=== PATIENT | male | born 1975 | race American Indian/Alaskan Native ===

== ENCOUNTER 2018-10-02 15:54 | Emergency (ER) | payer BC ==
[2018-10-02] MEDS ORDERED: IBUPROFEN PO ONE ×2 (16:12→16:13)
--- NOTE | 2018-10-02 16:14 | Emergency Department Report ---
Blank Doc - Documentation Documentation: 43 y/o male comes in for facial swelling and pain. Patient was seen by dentist and placed on Abx.
[2018-10-02] MEDS ORDERED: DILAUDID IV ONE (16:24)
[2018-10-02] MEDS ORDERED: NACL 0.9% 1000 ML IV ONE (16:25)
--- NOTE | 2018-10-02 16:28 | Emergency Department Report ---
<NATANAELRANJIT FLANAGAN Brennan - Last Filed: 10/02/18 19:09> ED General Adult HPI - General Chief complaint: Dental/Oral Stated complaint: ABSCESS ON LEFT SIDE OF FACE Source: patient Mode of arrival: Ambulatory Limitations: No Limitations - History of Present Illness Initial comments: Patient is a 43-year-old male who comes to the ER today complaining of left- sided facial pain. Patient saw a dentist about a week ago and the dentist has him on clindamycin and now persistent and he is scheduled for a obstruction in the morning. However the swelling on the side of his face is gotten worse he states that the swelling in his neck is gotten better. He has a low-grade fever 100.7 oral. He is controlling secretions with mild trismus. He does have left cervical lymphadenopathy but again the patient states that that has improved greatly. Patient is not hypotensive on admission but he does have a heart rate of 94. In the context of his clinical picture including fever, borderline tachycardia and no new infection on clindamycin now for almost a week the patient was called a code sepsis and the sepsis workup initiated. PLAN 1. NS 2. LABS WITH LACTIC ACID AND CULTURES 3. IV CLINDA 4 IV SOLUMEDROL 5. PAIN CONTROL 6. TREAT FEVER AND MONITOR VS 7 CT TO RO ABSCESS -: Gradual, days(s) Location: face Associated Symptoms: fever/chills - Related Data Previous Rx's Medication Instructions Recorded Last Taken Type Acetaminophen/Codeine [Tylenol 1 tab PO Q6H PRN #12 tab 10/02/18 Unknown Rx /Codeine # 3 tab] Allergies Allergy/AdvReac Type Severity Reaction Status Date / Time No Known Allergies Allergy Verified 10/02/18 16:18 ED Review of Systems Comment: All other systems reviewed and negative Constitutional: see HPI, fever ENT: as per HPI, dental pain. denies: ear pain, throat pain, hearing loss, epistaxis Cardiovascular: denies: as per HPI Endocrine: no symptoms reported ED Past Medical Hx - Past Medical History Previous Medical History?: No - Surgical History Past Surgical History?: No - Family History Family history: no significant - Social History Smoking Status: Current Every Day Smoker Substance Use Type: None - Medications Home Medications: Home Medications Medication Instructions Recorded Confirmed Last Taken Type Acetaminophen/Codeine [Tylenol 1 tab PO Q6H PRN #12 tab 10/02/18 Unknown Rx /Codeine # 3 tab] ED Physical Exam - General Limitations: No Limitations General appearance: alert - Eye Eye exam: Present: PERRL - ENT ENT exam: Present: mucous membranes moist - Expanded ENT Exam Expanded Mouth exam: Present: trismus. Absent: drooling, muffled voice, tongue normal Teeth exam: Present: dental caries Throat exam: Negative: tonsillar erythema - Neck Neck exam: Present: lymphadenopathy - Respiratory Respiratory exam: Present: normal lung sounds bilaterally - Cardiovascular Cardiovascular Exam: Present: regular rate - GI/Abdominal GI/Abdominal exam: Present: soft, normal bowel sounds - Extremities Exam Extremities exam: Present: normal inspection - Back Exam Back exam: Present: normal inspection - Neurological Exam Neurological exam: Present: alert, oriented X3, CN II-XII intact - Psychiatric Psychiatric exam: Present: normal affect, normal mood - Skin Skin exam: Present: warm, dry, intact ED Course - Reevaluation(s) Reevaluation #1: 10/02/18 19:09 REPORT TO RICO Munroe NP ED Medical Decision Making - Lab Data Result diagrams: 10/02/18 16:40 10/02/18 16:40 - Radiology Data Radiology results: report reviewed, image reviewed - Medical Decision Making Labs 10/02/18 10/02/18 10/02/18 16:40 16:40 16:40 WBC 15.5 H RBC 4.95 Hgb 14.9 Hct 43.8 MCV 88 MCH 30 MCHC 34 RDW 13.1 L Plt Count 218 Lymph % (Auto) 10.8 L [place] % (Auto) 7.5 H Eos % (Auto) 0.7 Baso % (Auto) 1.3 Lymph # 1.7 [place] # 1.2 H Eos # 0.1 Baso # 0.2 H Seg Neutrophils % 79.7 H Seg Neutrophils # 12.3 H Sodium 141 Potassium 3.3 L Chloride 97.9 L Carbon Dioxide 28 Anion Gap 18 BUN 12 Creatinine 0.9 Estimated GFR > 60 BUN/Creatinine Ratio 13 Glucose 121 H Lactic Acid 2.20 H* Calcium 9.1 Total Bilirubin 0.40 AST 15 ALT 13 Alkaline Phosphatase 70 Total Protein 8.0 Albumin 4.5 Albumin/Globulin Ratio 1.3 Urine Color Urine Turbidity Urine pH Ur Specific [place] Urine Protein Urine Glucose (UA) Urine Ketones Urine Blood Urine Nitrite Urine Bilirubin Urine Urobilinogen Ur Leukocyte Esterase Urine WBC (Auto) Urine RBC (Auto) Urine Mucus 10/02/18 18:09 WBC RBC Hgb Hct MCV MCH MCHC RDW Plt Count Lymph % (Auto) [place] % (Auto) Eos % (Auto) Baso % (Auto) Lymph # [place] # Eos # Baso # Seg Neutrophils % Seg Neutrophils # Sodium Potassium Chloride Carbon Dioxide Anion Gap BUN Creatinine Estimated GFR BUN/Creatinine Ratio Glucose Lactic Acid Calcium Total Bilirubin AST ALT Alkaline Phosphatase Total Protein Albumin Albumin/Globulin Ratio Urine Color Yellow Urine Turbidity Clear Urine pH 6.0 Ur Specific [place] 1.017 Urine Protein <15 mg/dl Urine Glucose (UA) Neg Urine Ketones Tr Urine Blood Sm Urine Nitrite Neg Urine Bilirubin Neg Urine Urobilinogen < 2.0 Ur Leukocyte Esterase Neg Urine WBC (Auto) < 1.0 Urine RBC (Auto) 16.0 Urine Mucus Few Vital Signs 10/02/18 16:09 Temperature 100.7 F H Pulse Rate 94 H Respiratory 18 Rate Blood Pressure 155/89 O2 Sat by Pulse 99 Oximetry 1900 LABS NOTED PT MEDICATED PER ORDERS CT IS PENDING REPORT TO RICO LOWRY FOR CT EVAL/DISPO - Differential Diagnosis RO ABSCESS V DENTAL CARIES ED Disposition Clinical Impression: Abscess, Encounter for incision and drainage procedure Disposition: - TO HOME OR SELFCARE Is pt being admited?: No Does the pt Need Aspirin: No Condition: Stable Instructions: Acetaminophen/Codeine (By mouth), Abscess Incision and Drainage (ED), Abscess (ED) Additional Instructions: Follow-up with a primary care doctor in 3-5 days or if symptoms worsen and continue return to emergency room as soon as possible. Return in 2 days for packing removal. Do not operate any machinery while taking Tylenol with codeine as this may cause drowsiness. Continue taking clindamycin as prescribed to you by the dentist. Prescriptions: Acetaminophen/Codeine [Tylenol /Codeine # 3 tab] 1 tab PO Q6H PRN #12 tab PRN Reason: Pain , Severe (7-10) Referrals: JONATAN BERNSTEIN MD [Primary Care Provider] - 3-5 Days PRIMARY CAREMD [Referring] - 3-5 Days JOSH GALLARDO MD [Staff Physician] - 3-[address] [facility] [Outside] - 3-5 Days Forms: Work/School Release Form(ED) <RICO LIMA - Last Filed: 10/02/18 21:56> ED Review of Systems ROS: Stated complaint: ABSCESS ON LEFT SIDE OF FACE Other details as noted in HPI ED Physical Exam - Expanded Head Exam Expanded 1 - Positive induration and fluctuance. Tender to touch. ED Course Vital Signs 10/02/18 10/02/18 10/02/18 16:09 19:56 21:41 Temperature 100.7 F H 99.1 F Pulse Rate 94 H 78 75 Respiratory 18 16 15 Rate Blood Pressure 155/89 Blood Pressure 168/97 [Right] O2 Sat by Pulse 99 98 100 Oximetry - I & D Left Face Type of Procedure: Complex Site: left facial area Blade Size: 11 I & D Procedure: betadine prep, sterile drapes applied, sterile dressing applied, gauze wick placed Progress: Under sterile field, I used Betadine to cleanse the area. I then used 2% lidocaine plain with 25-gauge 5/8 needle to inject area for anesthetic purposes. Total volume injected 3 mL. I then used an 11 blade to make a 1 cm incision. About 4 mL's of purulent drainage has been noted. I then used a hemostat to break the abscess formation. I then used sterile 0.9% normal saline flush to flush the wound with total volume of 40 mL used. I then put a 1/4 iodoform packing to the incision. A sterile 4 x 4 with tape has been applied as dressing. Bleeding is under control. Patient tolerated the procedure well with no signs of distress noted. ED Medical Decision Making - Lab Data Result diagrams: 10/02/18 16:40 10/02/18 16:40 - Medical Decision Making Patient was originally seen by Rosa ALMANZA. CT scan results show that patient has left anterior facial subcutaneous abscess. Patient was consulted with Lance See by patient history, physical exam, labs and CT results and agrees for incision and drainage with follow-up instructions. No dental abscesses noted. There was induration or fluctuance upon exam. Sepsis workup has been initiated. Patient did receive fluids and antibiotics. Repeat lactic acid has significantly decreased prior to discharge. Vital signs are stable prior to discharge. Prior to incision and drainage patient gave a verbal consent understanding and agreement. Patient was educated and instructed that he may have a scar from the incision and drainage which he stated to continue the procedure. This is incision and drainage and has been performed and patient tolerated well. A sterile dressing has been applied. Patient was educated on proper wound care. Patient is currently taking clindamycin which I instructed patient to continue taking it as prescribed (300 mg 3 times a day for 7 days) and Tylenol with codeine and was instructed not to operate any machinery while taking Tylenol with codeine due to drowsiness. Patient was instructed to return in 2 days for packing removal. Patient was instructed to refer to Follow-up with a primary care doctor in 3-5 days or if symptoms worsen and continue return to emergency room as soon as possible. At time of discharge, the patient does not seem toxic or ill in appearance. No acute signs of distress noted. Patient agrees to discharge treatment plan of care. No further questions noted by the patient. Critical care attestation.: If time is entered above; I have spent that time in minutes in the direct care of this critically ill patient, excluding procedure time. ED Disposition Is pt being admited?: No Does the pt Need Aspirin: No
[2018-10-02 17:00] LABS: Basophils # (Auto) 0.2 K/mm3 (0.0-0.1); Basophils % (Auto) 1.3 % (0.0-1.8); Eosinophils # (Auto) 0.1 K/mm3 (0.0-0.4); Eosinophils % (Auto) 0.7 % (0.0-4.3); Hematocrit 43.8 % (35.5-45.6); Hemoglobin 14.9 gm/dl (11.8-15.2); Lymphocytes # (Auto) 1.7 K/mm3 (1.2-5.4); Lymphocytes % (Auto) 10.8 % (13.4-35.0); Mean Corpuscular HGB Conc 34 % (32-34); Mean Corpuscular Volume 88 fl (84-94); Monocytes # (Auto) 1.2 K/mm3 (0.0-0.8); Monocytes % (Auto) 7.5 % (0.0-7.3); Platelet Count 218 K/mm3 (140-440); Red Blood Count 4.95 M/mm3 (3.65-5.03); Red Cell Distribution Width 13.1 % (13.2-15.2)
[2018-10-02] MEDS ORDERED: CLEOCIN 600 MG/50 mL 600 MG/50 ML BAG IV SCH (17:00)
[2018-10-02] MEDS ORDERED: SOLU-Medrol IV ONE (17:02)
[2018-10-02 17:14] LABS: Alanine Aminotransferase 13 units/L (7-56); Albumin 4.5 g/dL (3.9-5); BUN/Creatinine Ratio 13; Blood Urea Nitrogen 12 mg/dL (9-20); Calcium 9.1 mg/dL (8.4-10.2); Hemolysis Index 5
[2018-10-02 18:49] LABS: Bilirubin,Urine NEG (Negative); Blood,Urine SM (Negative); Color,Urine Yellow (Yellow); Mucus,Urine FEW /HPF; Protein,Urine <15 mg/dL mg/dL (Negative); Urobilinogen,Urine < 2.0 mg/dL (<2.0); WBC,Urine < 1.0 /HPF (0.0-6.0)
[2018-10-02] MEDS ORDERED: K-DUR PO ONE (19:25)
[2018-10-02 19:58] VITALS: BP 168/97
--- NOTE | 2018-10-02 20:35 | Cat Scan Report ---
PROCEDURE: CT NECK W CON TECHNIQUE: Computerized axial tomography of the soft tissue neck was performed following the IV inje ction of iodinated nonionic contrast. CT DOSE LENGTH PRODUCT: 471.2 mGycm HISTORY: abscess COMPARISONS: None . TECHNICAL QUALITY: Satisfactory. FINDINGS: Skull base: Visualized portions are normal . Paranasal sinuses: Visualized portions are normal . Nasopharynx: Normal . Oral cavity: Normal . Epiglottis/vallecula: Normal . Larynx/pyriform sinuses: Normal . Thyroid gland: Normal . Lymph nodes: Enlarged left submandibular lymph nodes measure up to 1 cm short axis . Mildly enlarged left level 3 nodes are present Salivary glands: Normal . Upper thorax: Normal . There are numerous dental caries. Total disease. In the left anterior subcutaneous tissues, there is significant soft tissue swelling. There is a mult iloculated developing fluid collection, measuring approximately 4.2 cm craniocaudal x 2.9 cm AP x 2.9 cm transverse. IMPRESSION: Organizing subcutaneous abscess in the left anterior facial subcutaneous tissues. There is reactive l eft submandibular adenopathy. Dental and periodontal disease . This document is electronically signed by Natalya Diallo MD., Oct 02 2018 08:33:10 PM ET
[2018-10-02] MEDS ORDERED: XYLOCAINE 2% INFILTRATI ONE ×2 (21:02→21:08)
[2018-10-02] MEDS ORDERED: NORCO 10/325 PO ONE (21:32)
== END 2018-10-02 21:41 | disposition home or self-care (01) ==
LOC: ED 15:54
DX: L02.01 Cutaneous abscess of face (principal)
CPT/HCPCS: 10060; 36415; 70491; 80053; 81001; 82140; 85025; 87040; 96365; 96375; 99284; J1170; J2930; J7030; Q9967

== ENCOUNTER 2018-10-04 11:40 | Emergency (ER) | payer BC ==
[2018-10-04 11:46] VITALS: BP 134/88
--- NOTE | 2018-10-04 11:57 | Emergency Department Report ---
Abscess Boil HPI - HPI Chief Complaint: Laceration/Recheck/Suture Stated Complaint: REMOVE PACKING Time Seen by Provider: 10/04/18 11:54 Duration: >1 Week Location: Head Severity: Mild History: Yes Pain, Yes Purulent Drainage, No Fever, No Foreign Body HPI: I&D 2 days ago, now here for packing removal. states improving, but now out of abx as they were started prior to I&D Home Medications: Previous Rx's Medication Instructions Recorded Last Taken Type Acetaminophen/Codeine [Tylenol 1 tab PO Q6H PRN #12 tab 10/02/18 Unknown Rx /Codeine # 3 tab] Clindamycin [Clindamycin CAP] 450 mg PO Q8HR #63 capsule 10/04/18 Unknown Rx Allergies/Adverse Reactions: Allergies Allergy/AdvReac Type Severity Reaction Status Date / Time No Known Allergies Allergy Verified 10/02/18 16:18 ED Review of Systems ROS: Stated complaint: REMOVE PACKING Other details as noted in HPI Comment: All other systems reviewed and negative ED Past Medical Hx - Past Medical History Previous Medical History?: No - Surgical History Past Surgical History?: No - Social History Smoking Status: Never Smoker Substance Use Type: None - Medications Home Medications: Home Medications Medication Instructions Recorded Confirmed Last Taken Type Acetaminophen/Codeine [Tylenol 1 tab PO Q6H PRN #12 tab 10/02/18 Unknown Rx /Codeine # 3 tab] Clindamycin [Clindamycin CAP] 450 mg PO Q8HR #63 capsule 10/04/18 Unknown Rx ED Abscess Boil Physical Exam - Exam General: Vital signs noted. No distress. Alert and acting appropriately. Size: 2 cm Exam: Yes Tenderness, Yes Surrounding Cellulites/Erythema, Yes Normal Neurologic Exam, No Fluctuance Exam: packing removed L cheek. noted mild induration, no drainage expressed ED Course Vital Signs 10/04/18 11:44 Temperature 98 F Pulse Rate 71 Respiratory 16 Rate Blood Pressure 134/88 [Left] O2 Sat by Pulse 97 Oximetry Critical care attestation.: If time is entered above; I have spent that time in minutes in the direct care of this critically ill patient, excluding procedure time. ED Medical Decision Making - Medical Decision Making improving, continue abx x 7 days f/u PCP - Differential Diagnosis abscess/packing removal ED Disposition Clinical Impression: Abscess and cellulitis Disposition: DC-01 TO HOME OR SELFCARE Is pt being admited?: No Condition: Good Instructions: Abscess (ED) Prescriptions: Clindamycin [Clindamycin CAP] 450 mg PO Q8HR #63 capsule Referrals: POPEYE BARAHONA MD [Staff Physician] - 3-5 Days Time of Disposition: 11:56
== END 2018-10-04 12:30 | disposition home or self-care (01) ==
LOC: ED 11:40
DX: L02.01 Cutaneous abscess of face (principal); L03.211 Cellulitis of face
CPT/HCPCS: 99282